=== PATIENT | female | born 1945 | race Caucasian/White ===

== ENCOUNTER 2020-08-18 09:30 | Outpatient (CLI) | payer MEDICARE, SELFPAY ==
--- NOTE | 2020-08-18 09:37 | MM_ITS ---
WS: [id number] BILATERAL SCREENING DIGITAL MAMMOGRAM WITH CAD HISTORY: SCREENING COMPARISON: 05/30/2017 and 05/12/2016 Bilateral CC and MLO views submitted. Computer aided detection analyzed. Breast composition: There are scattered areas of fibroglandular density. No suspicious masses, microc alcifications or architectural distortion. Benign calcification LEFT breast. MM/[place] [id number] IMPRESSION: BI-RADS: 2-Benign FOLLOW UP: 1 Year Follow-up
== END 2020-08-18 09:31 | disposition home or self-care (01) ==
LOC: RADSHAW 09:33
PROVIDERS: PCP Family Medicine; Visit Provider Family Medicine
DX: Z12.31 Encounter for screening mammogram for malignant neoplasm of breast (principal)
CPT/HCPCS: 77067

== ENCOUNTER 2021-08-13 13:30 | Outpatient (CLI) | payer MEDICARE, SELFPAY ==
--- NOTE | 2021-08-13 13:41 | US_ITS ---
WS: [id number] TRANSABDOMINAL PELVIC ULTRASOUND HISTORY: PELVIC PERINEAL PAIN COMPARISON: None available. Quality of this examination is significantly limited by transabdominal imaging only and body habitus. Patient has refused the transvaginal imaging at this time. Uterus: 5.3 cm x 4.1 cm x 2.8 cm. Very poorly visualized but does appear to be normal size. Endometrium: Not visualized. Neither ovary is identified. No adnexal masses are identified. No free fluid in the cul-de-sac. US/US pelvic complete* [id number] IMPRESSION: 1. Significantly limited evaluation of the pelvic structures. Urinary bladder was not distended. Significantly limited by patient's body habitus. Patient has denied transvaginal imaging at this time. 2. Neither ovary is identified. Very limited evaluation of the uterus. 3. Endometrium not visualized.
== END 2021-08-13 13:31 | disposition home or self-care (01) ==
LOC: RAD 13:34
PROVIDERS: PCP Family Medicine; Visit Provider Family Medicine
DX: R10.2 Pelvic and perineal pain (principal)
CPT/HCPCS: 76856

== ENCOUNTER 2022-07-16 15:05 | Outpatient (CLI) | payer MEDICARE, SELFPAY ==
--- NOTE | 2022-07-16 15:20 | XR_ITS ---
WS: [id number] SCREENING DEXA SCAN [employer] CLINICAL INFORMATION: POSTMENOPAUSAL COMPARISON: FINDINGS: The L1-L4 bone mineral density measures 0.838 g/cm2. This corresponds to a T score score of -2.8 and Z score of -1.2. Left femoral neck bone mineral density measures 0.782 g/cm2. This corresponds to a T score of -1.8 an d Z score of -0.1. Right femoral neck bone mineral density measures 0.845 g/cm2. This corresponds to a T score -1.3of an d Z score of 0.4. Mean femoral neck bone mineral density measures 0.813 g/cm2. This corresponds to a T score of -1.5 an d Z score of 0.2. XR/XR DEXA axial skeleton* [id number] IMPRESSION: Osteoporosis lumbar spine. Osteopenia femoral necks. Patient's FRAX calculated 10 year probability for major osteoporotic fracture i s 13.7 % and osteoporotic hip fracture is 3.6%. Bone mineral density lumbar spine has decreased -5.7% since 2018. Bone mineral density in the femoral necks has decreased -3.8% since 2018.
--- NOTE | 2022-07-16 15:20 | MM_ITS ---
WS: [id number] BILATERAL SCREENING DIGITAL TOMOSYNTHESIS MAMMOGRAM WITH CAD HISTORY: SCREENING COMPARISON: 08/18/2020, 05/30/2017 Bilateral CC and MLO views with tomosynthesis and synthetic mammography submitted. Computer aided det ection analyzed. Breast composition: There are scattered areas of fibroglandular density. No suspicious masses, microc alcifications or architectural distortion. Asymmetry of the upper outer quadrant of the RIGHT breast is stable. Benign calcifications. MM/[place] [id number] IMPRESSION: BI-RADS: 2-Benign FOLLOW UP: 1 Year Follow-up
== END 2022-07-16 15:06 | disposition home or self-care (01) ==
LOC: RAD 15:12
PROVIDERS: PCP Family Medicine; Visit Provider Family Medicine
DX: Z12.31 Encounter for screening mammogram for malignant neoplasm of breast (principal); Z78.0 Asymptomatic menopausal state; M81.0 Age-related osteoporosis without current pathological fracture; M85.852 Other specified disorders of bone density and structure, left thigh; M85.851 Other specified disorders of bone density and structure, right thigh
CPT/HCPCS: 77063; 77067; 77080

== ENCOUNTER 2023-04-04 03:21 | Emergency (ER) | payer MEDICARE, SELFPAY ==
[2023-04-04 03:27] VITALS: BP 161/78; PULSE 84; RESP 16; TEMP 36.8; O2SAT 95; BMI 24.9
[2023-04-04 03:40] VITALS: BP 161/78; PULSE 67; RESP 20; O2SAT 96
--- NOTE | 2023-04-04 04:07 | XRR_ITS ---
PROCEDURE INFORMATION: Exam: XR Chest Exam date and time: 04/04/2023 4:31 AM Age: 77 years old Clinical indication: Fever and shortness of breath; Patient HX: SOB with fever; Additional info: Fever SOB TECHNIQUE: Imaging protocol: Radiologic exam of the chest. Views: 1 view. COMPARISON: No relevant prior studies available. FINDINGS: Lungs: Unremarkable. No consolidation. Pleural spaces: Unremarkable. No pleural effusion. No pneumothorax. Heart/Mediastinum: Unremarkable. No cardiomegaly. Bones/joints: Unremarkable. XR/XR chest 1V portable [id number] IMPRESSION: No acute findings.
[2023-04-04 04:14] LABS: Rapid Strep A Test Negative (Negative)
--- NOTE | 2023-04-04 04:15 | W.ED.URI ---
HPI - URI/Sore Throat General: Chief Complaint: Upper Respiratory Infection Stated Complaint: possible strep,fever, took tylonal Time Seen by Provider: 04/04/23 03:40 Source: patient and family History of Present Illness: 77-year-old female who believes she has strep throat. She has had a sore throat for a little over a day. She has been coughing and congested as well. She is minimally short of breath. She has been running a temperature of 100-101 for the last 24 hours. Her has similar symptoms, but believes he is getting over his illness. MD elicited complaint: fever, cough, sore throat, rhinorrhea and nasal congestion Associated symptoms: Reports chills, fever(s) and nasal congestion; Deny abdominal pain, chest pain, nausea or vomiting Review of Systems Const: Reports: fever(s) and chills Eyes: Denies: change in vision ENMT: Reports: throat pain, nasal discharge and nasal congestion Card: Denies: chest pain or palpitations Resp: Reports: dyspnea and non-productive cough GI: Denies: abdominal pain, nausea or vomiting Physical Exam Const: COMMON NORMALS: no acute distress GENERAL APPEARANCE: cooperative and ill appearing (mildly); not frail appearing HENMT: COMMON NORMALS: normocephalic, atraumatic and Normal external nose present HEAD & SCALP: normocephalic and atraumatic FACE & SINUS: normal facial exam and face symmetric NOSE: Normal external nose present and Nasal discharge present THROAT: posterior oropharynx abnormal erythema; no edema and no exudates Eye: COMMON NORMALS: Equal, round and reactive pupils present and EOMs intact bilaterally PUPIL: Yes Equal, round and reactive pupils present Neck/C-Spine: GENERAL: Yes trachea midline Chest: CHEST: Yes Symmetrical chest wall rise Resp: COMMON NORMALS: normal respiratory effort, No retractions, No use of accessory muscles and clear to auscultation bilaterally AUSCULTATION: clear to auscultation bilaterally Cardio: COMMON NORMALS: regular rate and regular rhythm RATE: regular rate RHYTHM: regular rhythm GI: COMMON NORMALS: Normal to inspection, nondistended, normoactive bowel sounds present Extremity: COMMON NORMALS: no pedal edema Neuro: JCARLOS COMA SCALE: document GCS findings Jcarlos coma scale eye opening: Spontaneous Jcarlos coma scale verbal response: Orientated Ruth coma scale motor response: Obey commands Jcarlos coma scale total score: 15 SENSORY EXAM: Yes extremities (intact) Psych: COMMON NORMALS: speech normal SPEECH: Yes normal speech Skin: COMMON NORMALS: no rashes or lesions noted GENERAL SKIN EXAM: no rashes or lesions noted Course Vital Signs: Vital signs: Vital Signs Temperature 98.2 F 04/04/23 03:27 Pulse Rate 68 04/04/23 05:26 Respiratory Rate 20 H 04/04/23 05:26 Blood Pressure 138/68 04/04/23 05:26 Pulse Oximetry 94 04/04/23 05:26 Oxygen Delivery Me thod Nasal Cannula 04/04/23 05:04 Oxygen Flow Rate 2 04/04/23 05:04 MDM - URI/Sore Throat Medical Decision Making Rapid strep, rapid influenza antigens are negative. COVID antigen is positive. Chest x-ray is nonacute. She is maintaining saturations off oxygen. She will be allowed home. Symptomatic treatment. Paxlovid for COVID treatment. Return for worsening symptoms. Lab Data Laboratory Results Influenza Type A Ag negative (Negative) 04/04/23 03:50 Influenza Type B Ag negative (Negative) 04/04/23 03:50 SARS-CoV-2 Ag (Rapid) Positive (Negative) H 04/04/23 03:50 Group A Strep Rapid Negative (Negative) 04/04/23 03:50 XR interpretation done by ED provider, pending radiology final review Discharge Plan Discharge Patient Disposition: Home Clinical Impression: COVID-19 Condition: Stable Prescriptions: New Paxlovid 300 mg (150 mg x 2)-100 mg tablets,dose pack See Rx Instructions .ROUTE .COMPLEX Qty: 30 0RF Rx Instructions: take TWO 150 mg tablets of nirmatrelvir with ONE 100 mg tablet of ritonavir twice daily for 5 days [id number] 30-10-100 mg/5 mL syrup 5 ml PO Q4H PRN (Reason: cold symptoms) Qty: 118 0RF dexamethasone 6 mg tablet 6 mg PO DAILY Qty: 5 0RF Discharge Orders: Discharge ED (Routine); Ordered 04/04/23 Ordered By: Christ Castellanos Referrals: Adelina Hills MD [Primary Care Provider] - 4-7 days Patient Instructions: COVID-19 (Coronavirus Disease 2019) (ED), Opioid Safety, Pain Management Activity Restrictions/Additional Instructions: Medications as directed. Return for worsening shortness of breath despite treatment, other concerning symptoms. See your doctor next week. 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
[2023-04-04 04:18] VITALS: BP 145/69; PULSE 67; RESP 20; O2SAT 96
[2023-04-04 04:25] LABS: Influenza A by IFA negative (Negative); Influenza B by IFA negative (Negative)
[2023-04-04 04:37] LABS: SARS Covid-2 Antigen Positive (Negative)
[2023-04-04 05:04] VITALS: BP 138/68; PULSE 69; RESP 20; O2SAT 95
[2023-04-04] MEDS: guaiFENesin-codeine UDC 10 mL PO (05:16)
[2023-04-04] MEDS: dexamethasone 10 mg/mL INJ 8 MG PO (05:16)
[2023-04-04 05:26] VITALS: BP 138/68; PULSE 68; RESP 20; O2SAT 94
== END 2023-04-04 05:29 | disposition home or self-care (01) ==
PROVIDERS: Emergency Provider Emergency Medicine; PCP Family Medicine
DX: U07.1 COVID-19 (principal)
CPT/HCPCS: 71045; 87081; 87426; 87804; 87880; 99284; J1100

== ENCOUNTER 2023-07-20 10:28 | Outpatient (CLI) | payer MEDICARE, SELFPAY ==
--- NOTE | 2023-07-20 10:35 | MM_ITS ---
WS: [id number] BILATERAL SCREENING DIGITAL TOMOSYNTHESIS MAMMOGRAM WITH CAD HISTORY: SCREENING COMPARISON: 07/16/2022, 08/18/2020, 05/30/2017 Bilateral CC and MLO views with tomosynthesis and synthetic mammography submitted. Computer aided det ection analyzed. Breast composition: There are scattered areas of fibroglandular density. No suspicious masses, microc alcifications or architectural distortion. Focal asymmetry seen in the posterior lateral RIGHT breast on the CC projection only has been present over multiple prior years. Benign calcification LEFT [address] IMPRESSION: MM/[place] [id number] BI-RADS: 2-Benign FOLLOW UP: 1 Year Follow-up
== END 2023-07-20 10:29 | disposition home or self-care (01) ==
LOC: RAD 10:31
PROVIDERS: PCP Family Medicine; Visit Provider Family Medicine
DX: Z12.31 Encounter for screening mammogram for malignant neoplasm of breast (principal)
CPT/HCPCS: 77063; 77067

== ENCOUNTER 2023-12-27 11:08 | Outpatient (CLI) | payer MEDICARE, SELFPAY ==
--- NOTE | 2023-12-27 11:15 | XRR_ITS ---
PROCEDURE INFORMATION: Exam: XR Right Hip Exam date and time: 12/27/2023 11:31 AM Age: 78 years old Clinical indication: Hip pain; Right hip; Additional info: R hip pain TECHNIQUE: Imaging protocol: Radiologic exam of the right hip. Views: 1 view hip with pelvis when performed. COMPARISON: CR XR lumbar spine min 4V [id number] 12/27/2023 11:31 AM FINDINGS: Bones/joints: There is chronic joint space narrowing of the right hip suggesting moderate osteoarthritis. No evidence of a right hip fracture. The right iliac bone and right-sided pubic rami are intact. The visualized portions of the sacrum are unremarkable. Soft tissues: Unremarkable. XR/XR hip RT 2-3V wo/w pel* [id number] IMPRESSION: Moderate osteoarthritic changes of the right hip without fracture.
--- NOTE | 2023-12-27 11:15 | XRR_ITS ---
PROCEDURE INFORMATION: Exam: XR Right Knee Exam date and time: 12/27/2023 11:31 AM Age: 78 years old Clinical indication: Pain; Knee; Right; Additional info: Pain in right knee TECHNIQUE: Imaging protocol: Radiologic exam of the right knee. Views: 3 views. COMPARISON: No relevant prior studies available. FINDINGS: Bones/joints: There is normal anatomic alignment of the right knee. No fracture or destructive bone lesion. No evidence of a right knee effusion. There are mild tricompartmental osteoarthritic changes of the right knee. Soft tissues: Normal. XR/XR knee RT 3V* [id number] IMPRESSION: Mild tricompartmental osteoarthritic changes of the right knee without fracture or effusion.
--- NOTE | 2023-12-27 11:15 | XRR_ITS ---
PROCEDURE INFORMATION: Exam: XR Lumbosacral Spine Exam date and time: 12/27/2023 11:31 AM Age: 78 years old Clinical indication: Pain; Sciatica; Bilateral; Additional info: Sciatic pain TECHNIQUE: Imaging protocol: Radiologic exam of the lumbosacral spine. Views: 4 or 5 views. COMPARISON: CR XR hip RT 2-3V wo/w pel* [id number] 12/27/2023 11:31 AM FINDINGS: Bones/joints: There is normal anatomic alignment of the lumbosacral spine. No visible fracture deformity. There is at least moderate chronic degenerative disc disease at L5-S1. Soft tissues: Unremarkable. XR/XR lumbar spine min 4V [id number] IMPRESSION: Moderate chronic degenerative disc disease at L5-S1, otherwise unremarkable lumbosacral spine.
== END 2023-12-27 11:09 | disposition home or self-care (01) ==
LOC: RAD 11:11
PROVIDERS: PCP Family Medicine; Visit Provider Family Medicine
DX: M51.36 Other intervertebral disc degeneration, lumbar region (principal); M51.37 Other intervertebral disc degeneration, lumbosacral region; M16.11 Unilateral primary osteoarthritis, right hip; M25.561 Pain in right knee
CPT/HCPCS: 72110; 73502; 73562

== ENCOUNTER 2024-07-20 12:48 | Outpatient (CLI) | payer MEDICARE, SELFPAY ==
--- NOTE | 2024-07-20 12:50 | XR_ITS ---
WS: [id number] DEXA (DUAL ENERGY X-RAY ABSORPTIOMETRY) Bone mineral density was performed using a [employer] machine. HISTORY: ASYMPTOMATIC MENOPAUSAL STATE COMPARISON: 07/16/2022 Lumbar spine BMD (L1-L4): 0.877 g/cm2 T score: -2.5 Z score: -0.8 Total hip BMD: Left: 0.811 g/cm2. T score: -1.6 Z score: 0.3 Right: 0.835 g/cm2. T score: -1.4 Z score: 0.5 10 year probability of a major osteoporotic fracture is 13.8%. Compared to the prior study from 07/16/2022. Lumbar spine bone mineral density has increased by 4.7%. Bilateral hips bone mineral density has increased by 1.2%. XR/XR DEXA axial skeleton* [id number] IMPRESSION: OSTEOPOROSIS based upon the WHO classification for females. There is been a significant increase in bone mineral density within the lumbar spine since the prior study. No interval change BMD within the hips.
--- NOTE | 2024-07-20 12:50 | MM_ITS ---
WS: [id number] BILATERAL 3D TOMOSYNTHESIS DIGITAL SCREENING MAMMOGRAPHY WITH CAD CLINICAL INFORMATION: SCREENING HISTORY: Screening mammogram. No current complaints. COMPARISON: 2023 TECHNIQUE: Bilateral CC and MLO views. FINDINGS: Scattered fibroglandular densities bilaterally. No suspicious focal mass, asymmetry, calcifications, or architectural distortion. No evidence of malignancy. A few incidental punctate calcifications. Vascular calcification. Nodular density anterior LEFT breast is stable over multiple prior examinations MM/MM scr tomosynthesis [id number] IMPRESSION: DENSITY: There are scattered areas of fibroglandular density. BI-RADS: 2 - Benign. FOLLOW UP: 1 Year Follow-up Recommend return to annual screening mammography.
== END 2024-07-20 12:49 | disposition home or self-care (01) ==
PROVIDERS: PCP Family Medicine; Visit Provider Family Medicine
DX: Z12.31 Encounter for screening mammogram for malignant neoplasm of breast (principal); Z78.0 Asymptomatic menopausal state; R92.323 Mammographic fibroglandular density, bilateral breasts; R92.1 Mammographic calcification found on diagnostic imaging of breast; N64.89 Other specified disorders of breast; M81.0 Age-related osteoporosis without current pathological fracture
CPT/HCPCS: 77063; 77067; 77080